=== PATIENT | male | born 2005 | race Caucasian/White ===

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

== ENCOUNTER 2024-06-08 20:13 | Emergency (ER) | payer SELFPAY ==
--- NOTE | ~2024-06-08 | XR_ITS ---
XR knee RT min 4V Ordering provider: Shey Stratton MD History: . R knee pain . Comparison: None. FINDINGS: BONES: No acute fracture or dislocation. JOINT SPACES: Normal. SOFT TISSUES: Normal. IMPRESSION: No acute osseous abnormality right knee. Reviewed, dictated and finalized at location A. UCTION ADMINISTRATIVE ASSISTANT
--- NOTE | ~2024-06-08 | XR_ITS ---
XR wrist RT min 3V Ordering provider: Shey Stratton MD History: . R wrist pain . Comparison: None. FINDINGS: BONES: No acute fracture or dislocation. No definite scaphoid fracture. JOINT SPACES: Normal. SOFT TISSUES: Normal. IMPRESSION: No acute osseous abnormality right wrist. Reviewed, dictated and finalized at location A. THREADER OPERATOR
--- OUTSIDE RECORDS SUMMARY | 2024-06-08 20:16 | XMS_ITS | Patient Health Summary ---
Author Organization [facility] Address [address] [place] [address] Care Team Providers Care Hydrate Thickener Operator Name Role Phone Marilu Tejeda MD Unavailable [phone] Tiny De MD Primary Care Provider [phone] Note from [facility],non-owned Affiliates and Associated Physician Practices is amultiple site organization consisting of ambulatory clinics and hospital sitesin [place], [place] and [place]. This disclosure is being madepursuant to the Care Everywhere program and may not contain all information available regarding this patient. Last updated 17.[facility] Allergies No known active allergies Medications * Be aware that medications may not be up to date on this document. Alwaysverify current medications with the patient. * acetaminophen (TYLENOL) 500 MG tablet Take 2 (two) tablets by mouth every 4 hours as needed for Fever or Pain Maximum allowable Acetaminophen amount = 4 Grams (4000 mg) / 24 hours. * fluticasone propionate (Flonase) 50 MCG/ACT nasal spray(Started 05/31/2022) Conger 2 (two) sprays into each nostril once daily 11 refills by 05/31/2023 * naproxen (Naprosyn) 500 MG tablet(Started 06/02/2022) Take every 12 hours for 14 days, then up to every 12 hours as needed for migraine 3 refills by 06/02/2023 * ondansetron, disintegrating, (Zofran ODT) 4 MG tablet(Started 06/02/2022) Take 1 (one) tablet by mouth every 8 hours as needed for Nausea/Vomiting Allow tablet to dissolve on the tongue 3 refills by 06/02/2023 * ondansetron (Zofran) 4 MG tablet(Started 06/02/2022) Take 1 (one) tablet by mouth every 8 hours as needed for Nausea/Vomiting 3 refills by 06/02/2023 Active Problems Problem Noted Date Diagnosed Date Migraine without aura 06/02/2022 Secondhand smoke exposure 03/16/2017 Primary snoring 01/14/2015 WCC (well child check) 12/03/2014 Obesity 12/03/2014 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 Seasonal allergies 12/03/2014 Resolved Problems Problem Noted Date Diagnosed Date Resolved Date Scabies 03/10/2017 04/13/2017 Viral URI 12/24/2015 03/16/2017 Snoring 01/14/2015 01/14/2015 Evaluation for sleep apnea 12/03/2014 1 Immunizations * DTAP/HEP B/IPV(Given 01/27/2005, 2004, 2004) * DTaP VACCINE IM (6wk-6yrs)(Given 08/06/2008, 08/06/2008, 01/27/2006, 01/27/2006, 11/04/2005, 11/04/2005, 2004, 2004, 2004, 2004) * HEP A PEDS 2 DOSE(Given 03/15/2017, 10/07/2010, 10/07/2010) * HEP B VACCINE, PED/ADOL(Given 10/07/2010, 10/07/2010, 2004, 2004, 2004, 2004, 2004, 2004) * HIB VACCINE(Given 07/20/2005, 01/21/2005, 2004, 2004) * HIB-HAEMOPHILUS INFLUENZAE B CONJUGATE VACCINE(Given 01/27/2005) * HIB-PRP-T 4 DOSE(Given 01/27/2006, 01/27/2006, 07/20/2005, 07/20/2005, 2004, 2004, 2004, 2004) * INFLUENZA VACCINE(Given 01/27/2005, 01/27/2005) * INFLUENZA VACCINE, QUADR. (FLUZONE; FLULAVAL; FLUARIX; AFLURIA QUADRIVALENT; 6MO+), 0.5 ML (IIV4)(Given 03/15/2017) * MENINGOCOCCAL CONJUGATE (MCV4P)(Given 12/24/2015) * MMR(Given 08/06/2008, 08/06/2008, 07/20/2005, 07/20/2005) * PNEUMOCOCCAL PCV7 CONJ, PEDS(Given 01/27/2006, 07/20/2005, 07/20/2005, 01/21/2005, 2004, 2004, 2004, 2004) * POLIO IPV(Given 08/06/2008, 08/06/2008, 01/27/2006, 01/27/2006, 2004, 2004, 2004, 2004) * Pneumococcal Pcv13 Conj(Given 01/27/2006, 07/20/2005, 2004, 2004) * TDAP (7yrs+)(Given 12/24/2015) * VARICELLA(Given 08/06/2008, 08/06/2008, 07/20/2005, 07/20/2005) Social History Tobacco Use Types Packs/Day Years Used Date Smoking Tobacco: Never Smokeless Tobacco: Never Tobacco Cessation:Counseling Given: Not Answered Alcohol Use Standard Drinks/Week Comments No 0 (1 standard drink = 0.6 oz pur e alcohol) Sex and Gender Information Value Date Recorded Sex Assigned at Not on file Gender Identity Not on file Sexual Orientation Not on file Last Filed Vital Signs Vital Sign Reading Time Taken Comments Blood Pressure 122/78 06/02/2022 10:37 AM HEALTH AND SAFETY TECH Pulse 96 05/31/2022 6:22 AM HEALTH AND SAFETY TECH Temperature 36.3 C (97.4 F) 05/31/2022 6:22 AM HEALTH AND SAFETY TECH Respiratory Rate 18 05/31/2022 6:22 AM HEALTH AND SAFETY TECH Oxygen Saturation 97% 05/31/2022 6:22 AM HEALTH AND SAFETY TECH Inhaled Oxygen Concentration - - Weight 133.4 kg (294 lb 1.5 oz) 023 10:37 AM HEALTH AND SAFETY TECH Height 183 cm (6' 0.05 ) 06/02/2022 10: 37 AM HEALTH AND SAFETY TECH Body Mass Index 39.83 06/02/2022 10:37 AM HEALTH AND SAFETY TECH Body Mass Index Percentile 99.47% 06/02 10:37 AM HEALTH AND SAFETY TECH Growth Chart: [facility] (Boys, 2-2 0 Years) Procedures * MRI BRAIN WO CONTRAST(Performed 07/01/2022) Performed for Migraine without aura and without status migrainosus, not intractable * CULTURE STREP GROUP A(Performed 05/31/2022) * STREP A SCREEN DIRECT W RFLX STREP A CULTURE(Performed 05/31/2022) * AUDIOLOGY/TYMPANOMETRY ORDER(Performed 06/09/2021) * MONONUCLEOSIS SCREEN(Performed 12/23/2017) * INFLUENZA A+B ANTIGEN RAPID(Performed 12/23/2017) * LIPID PROFILE(Performed 03/15/2017) Performed for Encounter for routine child health examination with abnormal findings * GLUCOSE(Performed 03/15/2017) Performed for Encounter for routine child health examination with abnormal findings * ALT(Performed 03/15/2017) Performed for Encounter for routine child health examination with abnormal findings * CULTURE STREP GROUP A(Performed 01/18/2015) * STREP A SCREEN DIRECT W RFLX STREP A CULTURE(Performed 01/18/2015) * PEDIATRIC DIAGNOSTIC POLYSOMNOGRAM(Performed 01/10/2015) Performed for Sleep apnea, obstructive * LIPID PROFILE(Performed 12/03/2014) Performed for Obesity * GLUCOSE(Performed 12/03/2014) Performed for Obesity * ALT(Performed 12/03/2014) Performed for Obesity * XR ABD OBSTRUCTION SERIES 2VW(Performed 05/23/2014) Performed for Abdominal pain * URINE MICROSCOPIC ONLY(Performed 05/23/2014) * URINALYSIS REFLEX TO MICROSCOPIC NO CULTURE(Performed 05/23/2014) * STREP A SCREEN DIRECT(Performed 05/04/2010) * STREP A SCREEN DIRECT(Performed 03/06/2010) Results * MRI BRAIN WO CONTRAST (07/01/2022 7:30 AM CDT) Anatomical Region Laterality Modality Head Magnetic Resonan ce 07/01/2022 11:1 6 AM CDT Impressions 07/01/2022 11:26 AM CDT IMPRESSION: Normal MRI of the brain. Acute right-sided paranasal sinus disease with a fluid level in the right frontal sinus and pyogenic debris opacifying the right maxillary sinus. > Interpreting Provider: Wilda Carlson MD on 07/01/2022 11:26 AM Narrative 07/01/2022 11:26 AM CDT PROCEDURE: MRI BRAIN WO CONTRAST, DATE/TIME OF EXAM: 07/01/2022 7:30 AM, LOCATION [facility] INDICATION: G43.009: Migraine without aura, not intractable, without status migrainosus ADDITIONAL CLINICAL INFORMATION: Ordering Provider Reason For Exam: Technologist Note: Additional: COMPARISON: None. TECHNIQUE: Multiplanar, multisequence imaging of the brain was performed without IV contrast as per departmental protocol. FINDINGS: The brain parenchymal signal and morphology are normal. The myelination pattern is normal for patient age. Intracranial diffusion and susceptibility weighted imaging are normal. There is no intracranial mass or intracranial hemorrhage. The corpus callosum is normal. The pineal and pituitary glands are normal. The structures of the posterior fossa are normal in appearance. The ventricles are normal in size and configuration. No extra-axial fluid collection is evident. The flow voids of the major intracranial vessels are normal. There is opacification of the right maxillary sinus with corresponding diffusion restriction, suggesting pyogenic debris. Mucosal thickening is also seen in the right ethmoid air cells and right frontal sinus. There is a fluid level in the right frontal sinus. Mastoids are well aerated. The calvarium and soft tissues of the scalp are grossly unremarkable. Procedure Note Wilda Carlson MD - 07/01/2022 PROCEDURE: MRI BRAIN WO CONTRAST, DATE/TIME OF EXAM: 07/01/2022 7:30AM, LOCATION [facility] INDICATION: G43.009: Migraine without aura, not intractable, without statusmigrainosus ADDITIONAL CLINICAL INFORMATION: Ordering Provider Reason For Exam: Technologist Note: Additional: COMPARISON: None. TECHNIQUE: Multiplanar, multisequence imaging of the brain was performed without IV contrast as per departmental protocol. FINDINGS: The brain parenchymal signal and morphology are normal. The myelination pattern is normal for patient age. Intracranial diffusion and susceptibility weighted imaging are normal. There is no intracranialmass or intracranial hemorrhage. The corpus callosum is normal. The pineal and pituitary glands arenormal. The structures of the posterior fossa are normal in appearance. The ventricles are normal in size and configuration. No extra-axialfluid collection is evident. The flow voids of the major intracranial vessels are normal. There is opacification of the right maxillary sinus with corresponding diffusion restriction, suggesting pyogenic debris. Mucosal thickening is also seen in the right ethmoid air cells and right frontal sinus. Thereis a fluid level in the right frontal sinus. Mastoids are well aerated. The calvarium and soft tissues of the scalp are grossly unremarkable. IMPRESSION: Normal MRI of the brain. Acute right-sided paranasal sinus disease with a fluid level in theright frontal sinus and pyogenic debris opacifying the right maxillary sinus. > Interpreting Provider: Wilda Carlson MD on 07/01/2022 11:26 AM Estrella Nazario MD MR ORDERABLES * STREP A SCREEN DIRECT W RFLX STREP A CULTURE (05/31/2022 6:59 AM HEALTH AND SAFETY TECH) Only the most recent of2 resultswithin the time period is included. Rapid Strep A Screen Negative Negative 05/31/2022 7:26 AM HEALTH AND SAFETY TECH [facility] Microbiology ENTIRE THROAT (SURFACE REGION OF NECK) / Unknown Collection / Unknown 05/31/2022 6:59 AM HEALTH AND SAFETY TECH 05/31/2022 7:06 AM HEALTH AND SAFETY TECH Narrative [facility] - 05/31/2022 7:26 AM HEALTH AND SAFETY TECH Rapid test for Group A Beta Streptococcus is NEGATIVE. A Negative, Direct Test for Group A Streptococcus will be followed with a confirmatory Throat Culture when 2 swabs have been submitted. Manda Wolf MD LAB - MICROBIOLOGY O RDERABLES [address] [address], [facility] [phone] * CULTURE STREP GROUP A (05/31/2022 6:59 AM HEALTH AND SAFETY TECH) Only the most recent of2 resultswithin the time period is included. Culture Negative for beta-hemolytic Streptococcus Group A MELISSA 06/01/2022 10:31 AM HEALTH AND SAFETY TECH [facility] MICROBIOLOGY Microbiology ENTIRE THROAT (SURFACE REGION OF NECK) / Unknown Collection / Unknown 05/31/2022 6:59 AM HEALTH AND SAFETY TECH 05/31/2022 7:06 AM HEALTH AND SAFETY TECH Manda Wolf MD LAB - MICROBIOLOGY O RDERABLES [facility] MICROBIOLOGY [address] [place] [phone] * AUDIOLOGY/TYMPANOMETRY ORDER (06/09/2021 10:50 PM HEALTH AND SAFETY TECH) Narrative 06/09/2021 10:50 PM HEALTH AND SAFETY TECH Ordered by an unspecified provider. Scanned Document AUDIOLOGY SERVICES O RDERABLES * INFLUENZA A+B ANTIGEN RAPID (12/23/2017 1:05 AM CDT) Influenza A Antigen Negative Negative 12/23/2017 1:59 AM CDT [facility] Influenza B Antigen Negative Negative 12/23/2017 1:59 AM CDT [facility] Microbiology SPECIMEN FROM NASOPHARYNGEAL STRUCTURE / Unknown Collection / Unknown 12/23/2017 1:05 AM CDT 12/23/2017 1:42 AM CDT Narrative [facility] - 12/23/2017 1:59 AM CDT The sensitivity of rapid tests for influenza A and B antigens, according to the published reports , ranges from 30-70% when compared to PCR and viral culture. For H1N1 influenza A, the sensitivity varies from 30-50%. For other influenza A strains, the sensitivity ranges from 50-70%. For influenza B virus, the sensitivity is approximately 30%. A negative result does not exclude influenza infection. False-positive (and true-negative) influenza test results are more likely to occur when disease prevalence is low, which is generally at the beginning and end of the influenza season. False-negative (and true-positive) influenza test results are more likely to occur when disease prevalence is high, which is typically at the height of the influenza season. James Street MD LAB - MICROBIOL OGY ORDERABLES [facility] [address] [place] [address] * MONONUCLEOSIS SCREEN (12/23/2017 1:05 AM CDT) Mononucleosis Screen Negative Negative 12/23/2017 1:46 AM CDT [facility] Blood BLOOD SPECIMEN / Unknown Venipuncture / Unknown 12/23/2017 1:05 AM CDT 12/23/2017 1:[address] MD LAB - CHEMISTRY ORDERABLES Performing Organization Address [facility] Co de Phone Number [facility] [address] [place] [phone] * GLUCOSE (03/15/2017 2:56 PM HEALTH AND SAFETY TECH) Only the most recent of2 resultswithin the time period is included. Pathologist [facility] Glucose 91 70 - 105 mg/dL 03/15/2017 5:26 PM HEALTH AND SAFETY TECH [facility] Blood BLOOD SPECIMEN / Unknown Lab Venipuncture / Unknown 03/15/2017 2:56 PM HEALTH AND SAFETY TECH 03/15/2017 4:25 PM HEALTH AND SAFETY TECH Marilu Tejeda MD LAB - CHEMISTRY O RDERABLES Performing Organization Address [facility] Co de Phone Number [facility] [address] [place] [phone] * ALT (03/15/2017 2:56 PM HEALTH AND SAFETY TECH) Only the most recent of2 resultswithin the time period is included. ALT 36 6 - 46 U/L 03/15/2017 5:26 PM HEALTH AND SAFETY TECH [facility] Blood BLOOD SPECIMEN / Unknown Lab Venipuncture / Unknown 03/15/2017 2:56 PM HEALTH AND SAFETY TECH 03/15/2017 4:25 PM HEALTH AND SAFETY TECH Marilu Tejeda MD LAB - CHEMISTRY O RDERABLES Performing Organization Address [facility] Co de Phone Number [facility] [address] [place] [address] * (ABNORMAL) LIPID PROFILE (03/15/2017 2:56 PM HEALTH AND SAFETY TECH) Only the most recent of2 resultswithin the time period is included. Cholesterol 155 <170 mg/dL 03/15/2017 5:26 PM HEALTH AND SAFETY TECH [facility] Triglycerides 236 42 - 330 mg/dL 03/15/2017 5:26 PM HEALTH AND SAFETY TECH [facility] HDL Cholesterol 33(L) >40 mg/dL 7 5:26 PM [facility] LDL Calculated 75 <100 mg/dL 03/15/2017 5:26 PM [facility] VLDL Calculated 47(H) 12 - 38 mg/dL 03/15/2017 5:26 PM [facility] Chol HDL Ratio 4.7 <=5.0 03/15/2017 5:26 PM [facility] Blood BLOOD SPECIMEN / Unknown Lab Venipuncture / Unknown 03/15/2017 2:56 PM HEALTH AND SAFETY TECH 03/15/2017 4:25 PM HEALTH AND SAFETY TECH Narrative [facility] - 03/15/2017 5:26 PM [facility] Lipid Profile Comment: Adult references ranges are the recommendation of the [place] [employer] , for those patients >18 years old. Cholestrol LDL Triglycerides HDL -- -- -- <40 Low <170 <100 <150 Desirable 170-199 130-159 150-199 Borderline High >200 160-189 200-499 >60 High Risk factor status for Coronary Artery Disease is necessary to place these lab findings in perspective. Note: This test is for fasting patients only. A non-fasting state may alter some of these results. Marilu Tejeda MD LAB - CHEMISTRY O RDERABLES [facility] [address] [facility] [place] [address] * PEDIATRIC DIAGNOSTIC POLYSOMNOGRAM (01/10/2015) Linked Results See Linked Results [facility] 01/10/2015 Marilu Tejeda MD [facility] * XR ABD OBSTR SERIES (05/23/2014 11:09 PM HEALTH AND SAFETY TECH) Anatomical Region Laterality Modality Abdomen Radiographic Fadmuo ging 05/24/2014 7:01 AM HEALTH AND SAFETY TECH Impressions 05/24/2014 7:01 AM HEALTH AND SAFETY TECH Nonspecific, nonobstructive bowel gas pattern. Narrative 05/24/2014 7:01 AM HEALTH AND SAFETY TECH Exam: Abdomen obstruction series History: 8-year-old male with three-day history of lower abdominal pain now with diarrhea and vomiting Comparison: None Findings: The bowel gas pattern is nonspecific. There is no evidence of bowel obstruction. No air-fluid levels, pneumatosis, or free intraperitoneal air is seen. There are no abnormal calcifications. The lung bases are clear. The osseous structures are intact and well aligned. Procedure Note Esthela Piedra MD - 05/24/2014 Exam: Abdomen obstruction series History: 8-year-old male with three-day history of lower abdominal pain now with diarrhea and vomiting Comparison: None Findings: The bowel gas pattern is nonspecific. There is no evidence of bowel obstruction. No air-fluid levels, pneumatosis, or free intraperitoneal air is seen. There are no abnormal calcifications. The lung bases are clear. The osseous structures are intact and well aligned. IMPRESSION Nonspecific, nonobstructive bowel gas pattern. Lam Mixon MD DIAGNOSTIC IMAGING O RDERABLES * URINALYSIS ROUTINE AUTO (05/23/2014 10:59 PM HEALTH AND SAFETY TECH) Color UA Yellow Straw, Yellow, Dark Yellow 05/23/2014 11:15 PM [facility] Clarity UA Clear 05/23/2014 11:15 PM [facility] Specific [place] UA >=1.030 1.005 - 1.030 05/23/2014 11:15 PM [facility] pH UA 6.0 5.0 - 8.0 pH 05/23/2014 11:15 PM [facility] Protein UA Negative Negative 05/23/2014 11:15 PM [facility] Blood UA Negative Negative 05/23/2014 11:15 PM [facility] Leukocyte UA Negative Negative 05/23/2014 11:15 PM [facility] Nitrite UA Negative Negative 05/23/2014 11:15 PM [facility] Glucose UA Negative Negative 05/23/2014 11:15 PM [facility] Ketone UA Negative Negative 05/23/2014 11:15 PM [facility] Bilirubin UA Negative Negative 05/23/2014 11:15 PM [facility] Urobilinogen UA 0.2 0.1 - 1.0 EU/dL 05/23/2014 11:15 PM [facility] Urine URINE SPECIMEN OBTAINED BY CLEAN CATCH PROCEDURE / Unknown 05/23/2014 10:59 PM [facility] 05/23/2014 11:08 PM [facility] Lam Mixon MD LAB - URINALYSIS ORD ERABLES Performing Organization Address [facility] Co de Phone Number [facility] [address] [place] [address] * (ABNORMAL) URINALYSIS MICROSCOPIC ONLY (05/23/2014 10:59 PM HEALTH AND SAFETY TECH) Pathologist [facility] RBC UA 0-2 0-2, 2-5 # /hpf 05/23/2014 11:40 PM [facility] WBC UA 0-2 0-2, 2-5 # /hpf 05/23/2014 11:40 PM [facility] Bacteria UA 3+(A) None Seen, Trace 05/23/2014 11:40 PM [facility] Epithelial Cell UA 0-2 0-2, 2-5 05/23/2014 11:40 PM [facility] Mucus UA 2+ 05/23/2014 11:40 PM [facility] Urine URINE SPECIMEN OBTAINED BY CLEAN CATCH PROCEDURE / Unknown 05/23/2014 10:59 PM HEALTH AND SAFETY TECH 05/23/2014 11:08 PM HEALTH AND SAFETY TECH Lam Mixon MD LAB - URINALYSIS ORD ERABLES Performing Organization Address [facility] Co de Phone Number [facility] [address] [place] [phone] * (ABNORMAL) STREP A SCREEN DIRECT (05/04/2010 2:01 AM HEALTH AND SAFETY TECH) Only the most recent of2 resultswithin the time period is included. Strep A Rapid POSITIVE(A ) Neg Grp A Beta Strep [facility] ENTIRE THROAT (SURFACE REGION OF NECK) / Unknown 05/04/2010 2:01 AM HEALTH AND SAFETY TECH 05/04/2010 2:01 AM HEALTH AND SAFETY TECH Yordy Leal MD LAB - MICROBIOLOGY O RDERABLES [facility] [address] [place] [address] Care Teams Hydrate Thickener Operator Relationship Specialty Start Date End Date Tiny De MD [facility] [place] [address] PCP - General 06/01/21 Marilu Tejeda MD [address] [place] [address] Resident Student Resident 10/07/14
--- OUTSIDE RECORDS SUMMARY | 2024-06-08 20:16 | XMS_ITS | Referral Summary ---
Author Organization [facility] [employer] Address [address] [place] [place] [address] Care Team Providers Care Lubricating Engineer Name Role Phone Marilu Tejeda MD Unavailable [phone] Tiny De MD Primary Care Provider [phone] Source Comments [facility],non-owned Affiliates and Associated Physician Practices is amultiple site organization consisting of ambulatory clinics and hospital sitesin [place] and [place]. This disclosure is being madepursuant to the Care Everywhere program and may not contain all information available regarding this patient. Last updated 17.[facility] [employer] Allergies No known active allergies Medications * Be aware that medications may not be up to date on this document. Alwaysverify current medications with the patient. Medication Sig Dispensed Refills Start Date End Date Status acetaminophen (TYLENOL) 500 MG tablet Take 2 (two) tablets by mouth every 4 hours as needed for Fever or Pain Maximum allowable Acetaminophen amount = 4 Grams (4000 mg) / 24 hours. Active fluticasone propionate (Flonase) 50 MCG/ACT nasal spray [place] 2 (two) sprays into each nostril once daily 1 Each 11 05/31/2022 Active naproxen (Naprosyn) 500 MG tablet Take every 12 hours for 14 days, then up to every 12 hours as needed for migraine 40 tablet 3 06/02/2022 Active ondansetron, disintegrating, (Zofran ODT) 4 MG tablet Take 1 (one) tablet by mouth every 8 hours as needed for Nausea/Vomiting Allow tablet to dissolve on the tongue 20 tablet 3 06/02/2022 Active ondansetron (Zofran) 4 MG tablet Take 1 (one) tablet by mouth every 8 hours as needed for Nausea/Vomiting 20 tablet 3 06/02/2022 Active Active Problems Patient Care Coordination No te Formatting of this note migh t be different from the original. Do you have any cultural preferences or concerns? No 06/08/21 Problem Noted Date Diagnosed Date Migraine without aura 06/02/2022 Secondhand smoke exposure 03/16/2017 Assessment & Plan (03/16/2017 6:22 AM THRILL PERFORMER): Exposure to smoke in the home. Continue to recommend smoking cessation to parents. Will provide printed resources at next follow up visit. Primary snoring 01/14/2015 Overview (01/14/2015): Neg diag psg 01/10/15 SUMMARY RDI Min SaO2 2.3 78.0% AHI: 2.3 Obstructive AHI: 0.6 WCC (well child check) 12/03/2014 Assessment & Plan (03/16/2017 7:45 PM THRILL PERFORMER): Srinivas Cuello is here for his adolescent well child check and has obesity and normal development. Due for second Hep A, flu; HPV declined Dental referral for prevention! Mom has been provided referrals on multiple visits but has not seen a dentist in years. Provided list including our clinic at [facility]. Continue to encourage. Age appropriate anticipatory guidance provided Return in 3 months for weight check Assessment & Plan (12/24/2015 5:31 PM CDT): Srinivas Cuello is here for his 10 y.o. well child check and has normal growth with elevated interval weight gain and normal development. TdaP, Menactra; HPV and influenza declined Dental referral for prevention - Mom to picking machine operator provider list when she returns to clinic next week with sibling Age appropriate anticipatory guidance provided Return for next well child; check sooner if concerns arise. Assessment & Plan (12/03/2014 5:04 PM CDT): Srinivas Cuello is here for his 9 y.o. well child check and has normal growth and development. Immunizations up to date per mom, although no records. Mom to get records form school and bring them in before 10 year old visit. Has a Dental Home Age appropriate anticipatory guidance provided Return for next well child check; sooner if concerns arise Obesity 12/03/2014 Assessment & Plan (03/16/2017 7:49 PM THRILL PERFORMER): BMI >99th %tile. Fam hx of DM and heart disease. Labs last year showed low HDL and elevated TG. Active in sports. Continues to have unhealthy eating habits. - RTC in 3 mo for weight check, to only address weight, not part of a well child - Repeat obesity screening labs today - Consider referral to weight management Assessment & Plan (12/24/2015 5:30 PM CDT): BMI 99th percentile, and there is a family history of diabetes and heart disease. Labs done last year notable for low HDL and elevated triglycerides, otherwise unremarkable. Mom checks blood glucoses at home, states they range 100-115. Srinivas is active with sports and frequent practices, so ttiology appears to be excessive caloric intake, likely with soft drinks and snacks he has after or before practice. Had an extensive discussion with Mom and Srinivas on the importance of healthy eating and weight management. Mom very agreeable to facilitating weight loss by restricting access to soda and soft drinks, states that for Srinivas she will remove them from the house. Srinivas agreeable to trying to lose weight - Remove soda from diet and decrease candy intake - aiming for stable weight or weight loss at next visit - RTC in 3 months for a weight check - If he has gained weight will refer to weight management clinic Assessment & Plan (12/03/2014 5:07 PM CDT): BMI 99.5. Reviewed with mom who states child is active and eats healthy. Mom feels weight is WNL. Fam hx of obesity, CAD, DM. - obesity labs today, will call mom with results - f/u in 6 months, will reinforce healthy diet changes at that time 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 Assessment & Plan (12/03/2014 5:08 PM CDT): Evaluated by urology in 06/2014. Normal but hidden 2/2 obese abdomen. Weight loss encouraged. Seasonal allergies 12/03/2014 Assessment & Plan (12/03/2014 5:05 PM CDT): Frequent clearing of throat. Normal tonsils. Boggy nasal turbinates. - Claritin 10mg QD - Flonase BID x2 in each nostril PRN Resolved Problems Problem Noted Date Diagnosed Date Resolved Date Scabies 03/10/2017 04/13/2017 Assessment & Plan (03/16/2017 7:46 PM THRILL PERFORMER): Scabies rash improved on Permetherin 5%. Repeat treatment this week, script provided. Continue Benadryl PRN for itching. Assessment & Plan (03/10/2017 10:55 AM THRILL PERFORMER): Presentation in consistent with mild scabies. Here with younger brother, who has severe scabies on exam and they share a bedroom. - Apply Permethrin 5% cream to entire body below the head before bed, remove cream by bathing 8 to 14 hours later. - Repeat treatment in 1 week - Apply Vaseline to skin after treatment to help prevent dry skin and itching. Trim fingernails. - Clean all bedding and clothes immediately after treatment, wash and dry on HOT cycle. - Thoroughly vacuum the home. - May return to school AFTER treatment is complete (after first application of Permethrin cream) - Continue benadryl as needed every 6 hours for itching Viral URI 12/24/2015 03/16/2017 Assessment & Plan (03/10/2017 10:55 AM THRILL PERFORMER): Has congestion and cough on exam. Continue symptomatic management. - Encourage fluids - Tylenol prn for pain or fevers - Call or return to clinic if new symptoms develop or does not improve in 1-2 weeks Assessment & Plan (12/24/2015 5:31 PM CDT): Viral URI that he has acquired from his younger sibling. Appears well otherwise; supportive care. Snoring 01/14/2015 01/14/2015 Overview (01/14/2015): Neg diag psg 01/10/15 SUMMARY RDI Min SaO2 2.3 78.0% AHI: 2.3 Obstructive AHI: 0.6 Evaluation for sleep apnea 12/03/2014 1 Assessment & Plan (12/03/2014 5:10 PM CDT): Nightly snoring. Obese with normal tonsils. Mom notes period of apnea. Child is tired at end of day, not falling asleep during school. Able to focus appropriately during the school day. - referral for sleep study Immunizations Name Administration Dates Next Due DTAP/HEP B/IPV 01/27/2005,2004,2004 DTaP VACCINE IM (6wk-6yrs) 08/06/2008,,01/27/2006,01/27,11/04/2005,11/04/2005,2004 ,2004,2004,2004 HEP A PEDS 2 DOSE 03/15/2017,10/07/2010,10/08/19 11 HEP B VACCINE, PED/ADOL 10/07/2010,10/07,2004,10/30,2004,2004,2004 ,2004 HIB VACCINE 07/20/2005, 5,2004,08/20 HIB-HAEMOPHILUS INFLUENZAE B CONJUGATE VACCINE 01/27/2005 HIB-PRP-T 4 DOSE 01/27/2006, 6,07/20/2005,07/20,2004,2004,2004 ,2004 INFLUENZA VACCINE 01/27/2005,01/27/2005 INFLUENZA VACCINE, QUADR. (F LUZONE; FLULAVAL; FLUARIX; AFLURIA QUADRIVALENT; 6MO+), 0.5 ML (IIV4) 03/15/2017 MENINGOCOCCAL CONJUGATE (MCV4P) 12/24/2015 MMR 08/06/2008, 9,07/20/2005,07/20 PNEUMOCOCCAL PCV7 CONJ, PEDS 01/27/2006, 07/20/2005,07/20/2005,01/21,2004,2004,2004 ,2004 POLIO IPV 08/06/2008, 9,01/27/2006,01/27,2004,2004,2004 ,2004 Pneumococcal Pcv13 Conj 01/27/2006,07/20,2004,08/20 TDAP (7yrs+) 12/24/2015 VARICELLA 08/06/2008, 9,07/20/2005,07/20 Social History Tobacco Use Types Packs/Day Years [...] Comments Blood Pressure 122/78 06/02/2022 10:37 AM THRILL PERFORMER Pulse 96 05/31/2022 6:22 AM THRILL PERFORMER Temperature 36.3 C (97.4 F) 05/31/2022 6:22 AM THRILL PERFORMER Respiratory Rate 18 05/31/2022 6:22 AM THRILL PERFORMER Oxygen Saturation 97% 05/31/2022 6:22 AM THRILL PERFORMER Inhaled Oxygen Concentration - - Weight 133.4 kg (294 lb 1.5 oz) 023 10:37 AM THRILL PERFORMER Height 183 cm (6' 0.05 ) 06/02/2022 10: 37 AM THRILL PERFORMER Body Mass Index 39.83 06/02/2022 10:37 AM THRILL PERFORMER Body Mass Index Percentile 99.47% 06/02 10:37 AM THRILL PERFORMER Growth Chart: CDC (Boys, 2-2 0 Years) Plan of Treatment Not on file Care Teams Lubricating Engineer Relationship Specialty Start Date End Date Tiny De MD [address] [place] [phone] PCP - General 06/01/21 Marilu Tejeda MD [address] [place] [address] Resident Student Resident 10/07/14
--- OUTSIDE RECORDS SUMMARY | 2024-06-08 20:16 | XMS_ITS | Clinical Summary ---
Author Organization [facility] [employer] Address [address] [place] [address] Care Team Providers Care Resolution Manager Name Role Phone Marilu Tejeda MD Unavailable [phone] Tiny De MD Primary Care Provider [phone] Source Comments [facility],non-owned Affiliates and Associated Physician Practices is amultiple site organization consisting of ambulatory clinics and hospital sitesin [place], [place], [place] and [place]. This disclosure is being madepursuant to the Care Everywhere program and may not contain all information available regarding this patient. Last updated 17.[facility] [employer] Allergies No known active allergies Medications * [...] fluticasone propionate (Flonase) 50 MCG/ACT nasal spray [place] 2 (two) sprays into each nostril once [...] 03/16/2017 Assessment & Plan (03/16/2017 6:22 AM MANAGER CHEMICAL): Exposure to smoke in the home. Continue to recommend smoking cessation to parents. Will provide printed resources at next follow up visit. Primary snoring 01/14/2015 Overview (01/14/2015): Neg diag psg 01/10/15 SUMMARY RDI Min SaO2 2.3 78.0% AHI: 2.3 Obstructive AHI: 0.6 WCC (well child check) 12/03/2014 Assessment & Plan (03/16/2017 7:45 PM MANAGER CHEMICAL): Srinivas Granados is here for his adolescent well child check and has obesity and normal development. Due for second Hep A, flu; HPV declined Dental referral for prevention! Mom has been provided referrals on multiple visits but has not seen a dentist in years. Provided list including our clinic at [facility]. Continue to encourage. Age appropriate anticipatory guidance provided Return in 3 months for weight check Assessment & Plan (12/24/2015 5:31 PM CDT): Srinivas Granados is here for his 10 y.o. well child check and has normal growth with elevated interval weight gain and normal development. TdaP, Menactra; HPV and influenza declined Dental referral for prevention - Mom to picking belt operator provider list when she returns to clinic next week with sibling Age appropriate anticipatory guidance provided Return for next well child; check sooner if concerns arise. Assessment & Plan (12/03/2014 5:04 PM CDT): Srinivas Granados is here for his 9 y.o. well [...] 12/03/2014 Assessment & Plan (03/16/2017 7:49 PM MANAGER CHEMICAL): BMI >99th %tile. Fam hx of DM [...] 04/13/2017 Assessment & Plan (03/16/2017 7:46 PM MANAGER CHEMICAL): Scabies rash improved on Permetherin 5%. Repeat treatment this week, script provided. Continue Benadryl PRN for itching. Assessment & Plan (03/10/2017 10:55 AM MANAGER CHEMICAL): Presentation in consistent with mild scabies. Here [...] 03/16/2017 Assessment & Plan (03/10/2017 10:55 AM MANAGER CHEMICAL): Has congestion and cough on exam. Continue [...] 01/27/2006,07/20,2004,08/20 TDAP (7yrs+) 12/24/2015 VARICELLA 08/06/2008, 9,07/20/2005,07/20 Family History Medical History Relation Name Comments Childhood Hearing Disorder Father CAD (Coronary Artery Disease) Maternal Grandmother Diabetes Maternal Grandmother Asthma Mother Seizures Mother 2/2 brain cyst Anesthesia Reaction Neg Hx Bleeding Disorders Neg Hx Relation Name Status Comments Father Maternal Grandmother Mother Social History Tobacco Use Types Packs/Day Years [...] Comments Blood Pressure 122/78 06/02/2022 10:37 AM MANAGER CHEMICAL Pulse 96 05/31/2022 6:22 AM MANAGER CHEMICAL Temperature 36.3 C (97.4 F) 05/31/2022 6:22 AM MANAGER CHEMICAL Respiratory Rate 18 05/31/2022 6:22 AM MANAGER CHEMICAL Oxygen Saturation 97% 05/31/2022 6:22 AM MANAGER CHEMICAL Inhaled Oxygen Concentration - - Weight 133.4 kg (294 lb 1.5 oz) 023 10:37 AM MANAGER CHEMICAL Height 183 cm (6' 0.05 ) 06/02/2022 10: 37 AM MANAGER CHEMICAL Body Mass Index 39.83 06/02/2022 10:37 AM MANAGER CHEMICAL Body Mass Index Percentile 99.47% 06/02 10:37 AM MANAGER CHEMICAL Growth Chart: CDC (Boys, 2-2 0 Years) Plan of Treatment Health Maintenance Due Date Last Done Comments HIV SCREENING 07/04/2019 HPV VACCINE (1 - Male 3-dose series) 07/04/2019 MENINGOCOCCAL (Group B) VACCINE (1 of 2 - Standard) 2020 HEPATITIS C SCREENING 06/29/2022 COVID-19 VACCINE (1 - season) 2023 INFLUENZA VACCINE (#1) 2023 7, 01/27/2005, 01/27/2005 DEPRESSION SCREENING 04/04/2024 03/15/2017 DTAP/TDAP/TD VACCINES (7 - Td or Tdap) 12/23/2025 12/24/2015, 08/06/2008, 08/06/2008, Additional history exists ZOSTER VACCINE (1 of 2) 2054 HIB VACCINE Completed 01/27/2006, 01/03, 07/20/2005, Additional history exists PNEUMOCOCCAL VACCINE Completed 01/27/2006, 01/27/2006, 07/20/2005, Additional history exists HEPATITIS B VACCINE Completed 10/07/2010, 10/07/2010, 01/27/2005, Additional history exists MENINGOCOCCAL VACCINE Aged Out 12/24/2015 No liane shani eligible based on patient's age to complete this topic Care Teams Resolution Manager Relationship Specialty Start Date End Date Tiny De MD [address] [place] [phone] PCP - General 06/01/21 Marilu Tejeda MD [address] [place] [id number] Resident Student Resident 10/07/14
[2024-06-08 20:51] VITALS: BP 111/63; PULSE 95; RESP 17; TEMP 36.4; O2SAT 99
--- NOTE | 2024-06-09 01:05 | PC.NURSE ---
Patient and mother wanting to leave but when patient went to stand, became nauseous and c/o 10/10 right wrist pain.
[2024-06-09] MEDS: ONDANSETRON HCL ODT 4 MG TABLET PO (01:13)
[2024-06-09] MEDS: HYDROcodone/acetaminophen (*CRX) 5-325 MG TABLET 1 TAB PO (01:13)
--- OUTSIDE RECORDS SUMMARY | 2024-06-09 01:22 | XMS_ITS | Clinical Summary ---
Author Organization [facility] [employer] Address [address] [place] [address] Care Team Providers Care Broth Setter Name Role Phone Marilu Tejeda MD Unavailable [phone] Tiny De MD Primary Care Provider [phone] Source Comments [facility],non-owned Affiliates and Associated Physician Practices is amultiple site organization consisting of ambulatory clinics and hospital sitesin [place], [place], [place] and [place]. This disclosure is being madepursuant to the Care Everywhere program and may not contain all information available regarding this patient. Last updated 17.[facility] [employer] Allergies No known active allergies Medications * [...] fluticasone propionate (Flonase) 50 MCG/ACT nasal spray [place] 2 (two) sprays into each nostril once [...] 03/16/2017 Assessment & Plan (03/16/2017 6:22 AM CRIME SCENE EXAMINER): Exposure to smoke in the home. Continue to recommend smoking cessation to parents. Will provide printed resources at next follow up visit. Primary snoring 01/14/2015 Overview (01/14/2015): Neg diag psg 01/10/15 SUMMARY RDI Min SaO2 2.3 78.0% AHI: 2.3 Obstructive AHI: 0.6 WCC (well child check) 12/03/2014 Assessment & Plan (03/16/2017 7:45 PM CRIME SCENE EXAMINER): Srinivas Granados is here for his adolescent well child check and has obesity and normal development. Due for second Hep A, flu; HPV declined Dental referral for prevention! Mom has been provided referrals on multiple visits but has not seen a dentist in years. Provided list including our clinic at [facility]. Continue to encourage. Age appropriate anticipatory guidance provided Return in 3 months for weight check Assessment & Plan (12/24/2015 5:31 PM CDT): Srinivas Granados is here for his 10 y.o. well child check and has normal growth with elevated interval weight gain and normal development. TdaP, Menactra; HPV and influenza declined Dental referral for prevention - Mom to picket labor union provider list when she returns to clinic [...] 12/03/2014 Assessment & Plan (03/16/2017 7:49 PM CRIME SCENE EXAMINER): BMI >99th %tile. Fam hx of DM [...] 04/13/2017 Assessment & Plan (03/16/2017 7:46 PM CRIME SCENE EXAMINER): Scabies rash improved on Permetherin 5%. Repeat treatment this week, script provided. Continue Benadryl PRN for itching. Assessment & Plan (03/10/2017 10:55 AM CRIME SCENE EXAMINER): Presentation in consistent with mild scabies. Here [...] 03/16/2017 Assessment & Plan (03/10/2017 10:55 AM CRIME SCENE EXAMINER): Has congestion and cough on exam. Continue [...] Comments Blood Pressure 122/78 06/02/2022 10:37 AM CRIME SCENE EXAMINER Pulse 96 05/31/2022 6:22 AM CRIME SCENE EXAMINER Temperature 36.3 C (97.4 F) 05/31/2022 6:22 AM CRIME SCENE EXAMINER Respiratory Rate 18 05/31/2022 6:22 AM CRIME SCENE EXAMINER Oxygen Saturation 97% 05/31/2022 6:22 AM CRIME SCENE EXAMINER Inhaled Oxygen Concentration - - Weight 133.4 kg (294 lb 1.5 oz) 023 10:37 AM CRIME SCENE EXAMINER Height 183 cm (6' 0.05 ) 06/02/2022 10: 37 AM CRIME SCENE EXAMINER Body Mass Index 39.83 06/02/2022 10:37 AM CRIME SCENE EXAMINER Body Mass Index Percentile 99.47% 06/02 10:37 AM CRIME SCENE EXAMINER Growth Chart: CDC (Boys, 2-2 0 Years) [...] age to complete this topic Care Teams Broth Setter Relationship Specialty Start Date End Date Tiny De MD [address] [place] [phone] PCP - General 06/01/21 Marilu Tejeda MD [address] [place] [id number] Resident Student Resident 10/07/14
--- OUTSIDE RECORDS SUMMARY | 2024-06-09 01:22 | XMS_ITS | Patient Health Summary ---
Author Organization [facility] Address [address] [facility] [place] [address] Care Team Providers Care Risk Investigator Name Role Phone Marilu Tejeda MD Unavailable [phone] Tiny De MD Primary Care Provider [phone] Note from [facility],non-owned Affiliates and Associated Physician Practices is amultiple site organization consisting of ambulatory clinics and hospital sitesin [place], [place], [place] and [place]. This disclosure is being madepursuant to the Care Everywhere program and may not contain all information available regarding this patient. Last updated 17.[facility] Allergies No known active allergies Medications * [...] propionate (Flonase) 50 MCG/ACT nasal spray(Started 05/31/2022) [place] 2 (two) sprays into each nostril once [...] Comments Blood Pressure 122/78 06/02/2022 10:37 AM BALL RACKER Pulse 96 05/31/2022 6:22 AM BALL RACKER Temperature 36.3 C (97.4 F) 05/31/2022 6:22 AM BALL RACKER Respiratory Rate 18 05/31/2022 6:22 AM BALL RACKER Oxygen Saturation 97% 05/31/2022 6:22 AM BALL RACKER Inhaled Oxygen Concentration - - Weight 133.4 kg (294 lb 1.5 oz) 023 10:37 AM BALL RACKER Height 183 cm (6' 0.05 ) 06/02/2022 10: 37 AM BALL RACKER Body Mass Index 39.83 06/02/2022 10:37 AM BALL RACKER Body Mass Index Percentile 99.47% 06/02 10:37 AM BALL RACKER Growth Chart: [facility] (Boys, 2-2 0 Years) Procedures * [...] DATE/TIME OF EXAM: 07/01/2022 7:30 AM, LOCATION [facility] INDICATION: G43.009: Migraine without aura, not [...] CONTRAST, DATE/TIME OF EXAM: 07/01/2022 7:30AM, LOCATION [facility] INDICATION: G43.009: Migraine without aura, not [...] RFLX STREP A CULTURE (05/31/2022 6:59 AM BALL RACKER) Only the most recent of2 resultswithin the time period is included. Rapid Strep A Screen Negative Negative 05/31/2022 7:26 AM BALL RACKER [facility] Microbiology ENTIRE THROAT (SURFACE REGION OF NECK) / Unknown Collection / Unknown 05/31/2022 6:59 AM BALL RACKER 05/31/2022 7:06 AM BALL RACKER Narrative [facility] - 05/31/2022 7:26 AM BALL RACKER Rapid test for Group A Beta Streptococcus is NEGATIVE. A Negative, Direct Test for Group A Streptococcus will be followed with a confirmatory Throat Culture when 2 swabs have been submitted. Manda Wolf MD LAB - MICROBIOLOGY O RDERABLES [address] [address], [facility] [phone] * CULTURE STREP GROUP A (05/31/2022 6:59 AM BALL RACKER) Only the most recent of2 resultswithin the time period is included. Culture Negative for beta-hemolytic Streptococcus Group A MELISSA 06/01/2022 10:31 AM BALL RACKER [facility] MICROBIOLOGY Microbiology ENTIRE THROAT (SURFACE REGION OF NECK) / Unknown Collection / Unknown 05/31/2022 6:59 AM BALL RACKER 05/31/2022 7:06 AM BALL RACKER Manda Wolf MD LAB - MICROBIOLOGY O RDERABLES [facility] MICROBIOLOGY [address] [place] [phone] * AUDIOLOGY/TYMPANOMETRY ORDER (06/09/2021 10:50 PM BALL RACKER) Narrative 06/09/2021 10:50 PM BALL RACKER Ordered by an unspecified provider. Scanned Document AUDIOLOGY SERVICES O RDERABLES * INFLUENZA A+B ANTIGEN RAPID (12/23/2017 1:05 AM CDT) Influenza A Antigen Negative Negative 12/23/2017 1:59 AM CDT [facility] Influenza B Antigen Negative Negative 12/23/2017 1:59 AM CDT [facility] Microbiology SPECIMEN FROM NASOPHARYNGEAL STRUCTURE / Unknown Collection / Unknown 12/23/2017 1:05 AM CDT 12/23/2017 1:42 AM CDT Narrative [facility] - 12/23/2017 1:59 AM CDT [...] Street MD LAB - MICROBIOL OGY ORDERABLES [facility] [address] [place] [address] * MONONUCLEOSIS SCREEN (12/23/2017 1:05 AM CDT) Mononucleosis Screen Negative Negative 12/23/2017 1:46 AM CDT [facility] Blood BLOOD SPECIMEN / Unknown Venipuncture / Unknown 12/23/2017 1:05 AM CDT 12/23/2017 1:[address] MD LAB - CHEMISTRY ORDERABLES Performing Organization Address [facility] [facility] Co de Phone Number [facility] [address] [place] [phone] * GLUCOSE (03/15/2017 2:56 PM BALL RACKER) Only the most recent of2 resultswithin the time period is included. Pathologist [facility] Glucose 91 70 - 105 mg/dL 03/15/2017 5:26 PM BALL RACKER [facility] Blood BLOOD SPECIMEN / Unknown Lab Venipuncture / Unknown 03/15/2017 2:56 PM BALL RACKER 03/15/2017 4:25 PM BALL RACKER Marilu Tejeda MD LAB - CHEMISTRY O RDERABLES Performing Organization Address [facility] Co de Phone Number [facility] [address] [place] [phone] * ALT (03/15/2017 2:56 PM BALL RACKER) Only the most recent of2 resultswithin the time period is included. ALT 36 6 - 46 U/L 03/15/2017 5:26 PM BALL RACKER [facility] Blood BLOOD SPECIMEN / Unknown Lab Venipuncture / Unknown 03/15/2017 2:56 PM BALL RACKER 03/15/2017 4:25 PM BALL RACKER Marilu Tejeda MD LAB - CHEMISTRY O RDERABLES Performing Organization Address [facility] Co de Phone Number [facility] [address] [place] [address] * (ABNORMAL) LIPID PROFILE (03/15/2017 2:56 PM BALL RACKER) Only the most recent of2 resultswithin the time period is included. Cholesterol 155 <170 mg/dL 03/15/2017 5:26 PM BALL RACKER [facility] Triglycerides 236 42 - 330 mg/dL 03/15/2017 5:26 PM BALL RACKER [facility] HDL Cholesterol 33(L) >40 mg/dL 7 5:26 PM [facility] LDL Calculated 75 <100 mg/dL 03/15/2017 5:26 PM [facility] VLDL Calculated 47(H) 12 - 38 mg/dL 03/15/2017 5:26 PM [facility] Chol HDL Ratio 4.7 <=5.0 03/15/2017 5:26 PM [facility] Blood BLOOD SPECIMEN / Unknown Lab Venipuncture / Unknown 03/15/2017 2:56 PM BALL RACKER 03/15/2017 4:25 PM BALL RACKER Narrative [facility] - 03/15/2017 5:26 PM [facility] Lipid Profile Comment: Adult references ranges are the recommendation of the [place] [employer] , for those patients >18 [...] Tejeda MD LAB - CHEMISTRY O RDERABLES [facility] [address] [facility] [place] [address] * PEDIATRIC DIAGNOSTIC POLYSOMNOGRAM (01/10/2015) Linked Results See Linked Results SLEEP CENTER 01/10/2015 Marilu Tejeda MD SLEEP CENTER [facility] * XR ABD OBSTR SERIES (05/23/2014 11:09 PM BALL RACKER) Anatomical Region Laterality Modality Abdomen Radiographic Fadumo ging 05/24/2014 7:01 AM BALL RACKER Impressions 05/24/2014 7:01 AM BALL RACKER Nonspecific, nonobstructive bowel gas pattern. Narrative 05/24/2014 7:01 AM BALL RACKER Exam: Abdomen obstruction series History: 8-year-old male [...] * URINALYSIS ROUTINE AUTO (05/23/2014 10:59 PM BALL RACKER) Color UA Yellow Straw, Yellow, Dark Yellow 05/23/2014 11:15 PM [facility] Clarity UA Clear 05/23/2014 11:15 PM [facility] Specific [place] UA >=1.030 1.005 - 1.030 05/23/2014 11:15 PM [facility] pH UA 6.0 5.0 - 8.0 pH 05/23/2014 11:15 PM [facility] Protein UA Negative Negative 05/23/2014 11:15 PM [facility] Blood UA Negative Negative 05/23/2014 11:15 PM [facility] Leukocyte UA Negative Negative 05/23/2014 11:15 PM [facility] Nitrite UA Negative Negative 05/23/2014 11:15 PM [facility] Glucose UA Negative Negative 05/23/2014 11:15 PM [facility] Ketone UA Negative Negative 05/23/2014 11:15 PM [facility] Bilirubin UA Negative Negative 05/23/2014 11:15 PM [facility] Urobilinogen UA 0.2 0.1 - 1.0 EU/dL 05/23/2014 11:15 PM [facility] Urine URINE SPECIMEN OBTAINED BY CLEAN CATCH PROCEDURE / Unknown 05/23/2014 10:59 PM [facility] 05/23/2014 11:08 PM [facility] Lam Mixon MD LAB - URINALYSIS ORD ERABLES Performing Organization Address City/[facility] Co de Phone Number [facility] [address] [place] [address] * (ABNORMAL) URINALYSIS MICROSCOPIC ONLY (05/23/2014 10:59 PM BALL RACKER) Pathologist [facility] RBC UA 0-2 0-2, 2-5 # /hpf 05/23/2014 11:40 PM [facility] WBC UA 0-2 0-2, 2-5 # /hpf 05/23/2014 11:40 PM [facility] Bacteria UA 3+(A) None Seen, Trace 05/23/2014 11:40 PM [facility] Epithelial Cell UA 0-2 0-2, 2-5 05/23/2014 11:40 PM [facility] Mucus UA 2+ 05/23/2014 11:40 PM [facility] Urine URINE SPECIMEN OBTAINED BY CLEAN CATCH PROCEDURE / Unknown 05/23/2014 10:59 PM BALL RACKER 05/23/2014 11:08 PM BALL RACKER Lam Mixon MD LAB - URINALYSIS ORD ERABLES Performing Organization Address [facility] Co de Phone Number [facility] [address] [place] [phone] * (ABNORMAL) STREP A SCREEN DIRECT (05/04/2010 2:01 AM BALL RACKER) Only the most recent of2 resultswithin the time period is included. Strep A Rapid POSITIVE(A ) Neg Grp A Beta Strep [facility] ENTIRE THROAT (SURFACE REGION OF NECK) / Unknown 05/04/2010 2:01 AM BALL RACKER 05/04/2010 2:01 AM BALL RACKER Yordy Leal MD LAB - MICROBIOLOGY O RDERABLES [facility] [address] [place] [address] Care Teams Risk Investigator Relationship Specialty Start Date End Date Tiny De MD [facility] [place] [address] PCP - General 06/01/21 Marilu Tejeda MD [address] [place] [address] Resident Student Resident 10/07/14
--- OUTSIDE RECORDS SUMMARY | 2024-06-09 01:22 | XMS_ITS | Referral Summary ---
Author Organization [facility] Address [address] [facility] [place] [address] Care Team Providers Care Activated Sludge Operator Name Role Phone Marilu Tejeda MD Unavailable [phone] Tiny De MD Primary Care Provider [phone] Source Comments [facility],non-owned Affiliates and Associated Physician Practices is amultiple site organization consisting of ambulatory clinics and hospital sitesin [place], [place], [place] and [place]. This disclosure is being madepursuant to the Care Everywhere program and may not contain all information available regarding this patient. Last updated 17.[facility] Allergies No known active allergies Medications * [...] fluticasone propionate (Flonase) 50 MCG/ACT nasal spray [place] 2 (two) sprays into each nostril once [...] 03/16/2017 Assessment & Plan (03/16/2017 6:22 AM CERAMIC DESIGN ENGINEER): Exposure to smoke in the home. Continue to recommend smoking cessation to parents. Will provide printed resources at next follow up visit. Primary snoring 01/14/2015 Overview (01/14/2015): Neg diag psg 01/10/15 SUMMARY RDI Min SaO2 2.3 78.0% AHI: 2.3 Obstructive AHI: 0.6 WCC (well child check) 12/03/2014 Assessment & Plan (03/16/2017 7:45 PM CERAMIC DESIGN ENGINEER): Srinivas Cuello is here for his adolescent well child check and has obesity and normal development. Due for second Hep A, flu; HPV declined Dental referral for prevention! Mom has been provided referrals on multiple visits but has not seen a dentist in years. Provided list including our clinic at [facility]. Continue to encourage. Age appropriate anticipatory guidance provided Return in 3 months for weight check Assessment & Plan (12/24/2015 5:31 PM CDT): Srinivas Cuello is here for his 10 y.o. well child check and has normal growth with elevated interval weight gain and normal development. TdaP, Menactra; HPV and influenza declined Dental referral for prevention - Mom to fruit picker provider list when she returns to clinic [...] 12/03/2014 Assessment & Plan (03/16/2017 7:49 PM CERAMIC DESIGN ENGINEER): BMI >99th %tile. Fam hx of DM [...] 04/13/2017 Assessment & Plan (03/16/2017 7:46 PM CERAMIC DESIGN ENGINEER): Scabies rash improved on Permetherin 5%. Repeat treatment this week, script provided. Continue Benadryl PRN for itching. Assessment & Plan (03/10/2017 10:55 AM CERAMIC DESIGN ENGINEER): Presentation in consistent with mild scabies. Here [...] 03/16/2017 Assessment & Plan (03/10/2017 10:55 AM CERAMIC DESIGN ENGINEER): Has congestion and cough on exam. Continue [...] Comments Blood Pressure 122/78 06/02/2022 10:37 AM CERAMIC DESIGN ENGINEER Pulse 96 05/31/2022 6:22 AM CERAMIC DESIGN ENGINEER Temperature 36.3 C (97.4 F) 05/31/2022 6:22 AM CERAMIC DESIGN ENGINEER Respiratory Rate 18 05/31/2022 6:22 AM CERAMIC DESIGN ENGINEER Oxygen Saturation 97% 05/31/2022 6:22 AM CERAMIC DESIGN ENGINEER Inhaled Oxygen Concentration - - Weight 133.4 kg (294 lb 1.5 oz) 023 10:37 AM CERAMIC DESIGN ENGINEER Height 183 cm (6' 0.05 ) 06/02/2022 10: 37 AM CERAMIC DESIGN ENGINEER Body Mass Index 39.83 06/02/2022 10:37 AM CERAMIC DESIGN ENGINEER Body Mass Index Percentile 99.47% 06/02 10:37 AM CERAMIC DESIGN ENGINEER Growth Chart: CDC (Boys, 2-2 0 Years) Plan of Treatment Not on file Care Teams Activated Sludge Operator Relationship Specialty Start Date End Date Tiny De MD [address] [place] [address] PCP - General 06/01/21 Marilu Tejeda MD [address] [place] [address] Resident Student Resident 10/07/14
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
[2024-06-09 01:47] VITALS: BP 124/61; PULSE 99; RESP 20; O2SAT 100
== END 2024-06-09 01:52 | disposition home or self-care (01) ==
PROVIDERS: Emergency Provider Physician Assistant
DX: S63.501A Unspecified sprain of right wrist, initial encounter (principal); T14.8XXA Other injury of unspecified body region, initial encounter; V00.831A Fall from motorized mobility scooter, initial encounter
CPT/HCPCS: 29125; 73110; 73564; 99284; A9270